=== PATIENT | female | born 1975 | race Caucasian/White ===

== ENCOUNTER 2016-12-26 09:09 | Day surgery (SDC) | payer OTHER ==
--- NOTE | 2016-12-23 10:57 | HP ---
PATIENT: SELAM CARBAJAL MEDICAL RECORD: [id number] ACCOUNT: [id number] LOCATION:[facility] : 75 ADMISSION DATE: 12/26/16 HISTORY AND PHYSICAL EXAMINATION Preoperative History and Physical HISTORY OF PRESENT ILLNESS: Selam is 41 years old. She has a thyroid nodule. She is very concerned about cancer. She has a solitary 2.6 cm nodule on the right side. Needle biopsy result was a fairly benign in appearance; however, carcinoma can be ruled out. She wants to proceed with thyroidectomy. PAST MEDICAL HISTORY: Otherwise negative. PAST SURGICAL HISTORY: times 2, cholecystectomy, stent of her liver in 2000. CURRENT MEDICATIONS: None. ALLERGIES: MORPHINE, PHENERGAN AND AMOXICILLIN. PHYSICAL EXAMINATION: GENERAL: She is healthy in appearance. FACE: Normal, symmetric, no lesions. EYES: Sclerae and conjunctivae are normal. EARS: Canals and TMs are normal. NOSE: No masses, polyps, or drainage. ORAL CAVITY AND OROPHARYNX: Tongue protrudes in midline. Pharynx is normal. NECK: She has got an obvious right-sided thyroid visibly rises when she swallows. CHEST: Clear. CARDIOVASCULAR: Regular rate and rhythm. No murmur. EXTREMITIES: Normal. IMPRESSION: Solitary thyroid nodule. PLAN: Right thyroid lobectomy with possible total thyroidectomy. TRANSINT:[id number] Voice Confirmation ID: [id number] DOCUMENT ID: [id number] MARI GALLOWAY MD at 1057 CC: [id number] DICTATION DATE: 12/22/16 1540 DEVELOPMENT EXECUTIVE: 12/22/16 2139 [address] [facility] [address] [id number]
[2016-12-26] VITALS (10 sets, daily range): BP systolic 98–112; BP diastolic 48–70; Ht 153.7 cm; Wt 99.5 kg
[~2016-12-26] VITALS: Ht 153.7 cm; Wt 99.5 kg
--- NOTE | ~2016-12-26 | OP ---
PATIENT NAME: LUISITO CARBAJAL MEDICAL RECORD: [id number] :75 LOCATION:[id number] ADMISSION DATE: SURGEON: USAMA GALLOWAY MD DATE OF OPERATION: 12/26/2016 PREOPERATIVE DIAGNOSIS: Right thyroid nodule. POSTOPERATIVE DIAGNOSIS: Right thyroid nodule. PROCEDURE: Right thyroid lobectomy. SURGEON: Usama Galloway MD ANESTHESIA: General orotracheal. BLOOD LOSS: Less than 20 cc. SPECIMENS: Right thyroid lobe. DRAINS: A 10-[place] fluted through a separate stab incision inferior to the wound. COMPLICATIONS: None. DISPOSITION: Recovery stable. 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 DESCRIPTION OF PROCEDURE: She was brought to the operating room and placed in supine position, sedated and intubated by anesthesia. She was positioned, prepped and draped in usual sterile fashion for thyroid surgery. A skin crease in the lower neck was injected with a total of 1 cc of 1% lidocaine with 1:100,000 epinephrine. A horizontal incision was made with a 15 blade. This was taken down to the fascia with a spatula tip cautery on a setting of 14. Flaps were developed superiorly and inferiorly, 4 separate 2-0 silk retraction sutures were placed. The fascia was divided in the midline. Strap muscles were identified, divided in the midline. This was taken down superiorly and inferiorly exposing the thyroid. The strap muscles were dissected bluntly off of the thyroid on the right side. [place] was inserted and the nodule was very obvious, dissected inferiorly to identify the recurrent laryngeal nerve and then superiorly to take down the pedicle and vasculature of the superior thyroid lobe with a combination of bipolar cautery and 2-0 silk ties. The gland was then rotated medially and dissected along the capsule of the gland, preserving the parathyroid glands visualizing the recurrent laryngeal nerve as this was medialized, taken down small segments of fascia with tonsil clamp, bipolar cautery and scissors until Calderón's ligament was divided. The thyroid gland was divided with cautery right over the midline of the trachea and this was sent for specimen. 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 The wound was irrigated and was carefully inspected. There was really no significant bleeding at all. Drain was placed through the separate stab incision inferior to the wound. The strap muscles were approximated loosely with interrupted 4-0 chromic. The wound was closed in platysmal layer with interrupted 3-0 Vicryl and the skin was closed with subcuticular 6-0 Prolene. A 2-0 silk drain stitch was placed. She was awakened, extubated, and transported to recovery in good condition. No complications. OPERATIVE REPORT [id number] LUISITO CARBAJAL TRANSINT:[id number] Voice Confirmation ID: [id number] DOCUMENT ID: [id number] USAMA GALLOWAY MD CC: [id number] DICTATION DATE: 12/26/161526 RIM TURNING FINISHER: 12/26/16 2307 [address] [facility] [address] [id number]
[~2016-12-26 09:09] MED LIST: LEVOTHYROXINE75 MCG PO
[2016-12-26 10:30] LABS: HEMATOCRIT 40.7 % (36.0-48.0); HEMOGLOBIN 12.7 g/dL (12-16); MCH 24.5 pg (26.0-34.0); MCHC 31.2 g/dL (31.0-37.0); MCV 78.4 fL (80.0-100.0); MEAN PLATELET VOLUME 10.1 fL (7.4-10.4); RBC 5.19 10x6/uL (4.00-5.40); RDW 16.5 % (11.5-14.5); WBC 8.1 10x3/uL (4.8-10.8)
--- NOTE | 2016-12-26 16:45 | NUR ---
RECIEVED PT VIA BED AT THIS TIME FROM RECOVERY. REPORT GIVEN BY SIDNEY GUTIÉRREZ. ASSESSMENT DONE PER FLOWSHEET. POST-OP VITALS INITIATED AT THIS TIME. BED IN LOW POSITION AND CALL LIGHT WITHIN REACH. WILL CONTINUE TO MONITOR.
--- NOTE | 2016-12-26 18:05 | NUR ---
PT PULSE RATE RUNNING LOW, CALL PLACED TO DR. LAVERNE VELA AND ANESTHESIA CAME TO SEE THE PT, HEART RATE CAME UP TO 74-76 RANGE FROM 37-45 RANGE. WILL CONTINUE TO MONITOR.
[2016-12-27] VITALS: BP 108/73
--- NOTE | 2016-12-27 02:16 | NUR ---
RESTING WITH EYES CLOSED, NO DISTRESS NOTED, FALL PRECAUTIONS IN PLACE, CL IN REACH
--- NOTE | 2016-12-27 02:30 | NUR ---
REC'D PATIENT SITTING UP IN BED. ALERT AND ORIENTED X4. REPORTED PAIN 6/10. NO DISTRESS NOTED. INSTRUCTED TO CALL IF NEEDED ANYTHING, VERBALIZED UNDERSTANDING. IS AT BEDSIDE. BED LOW, LOCKED, CALL LIGHT IN REACH.
[2016-12-27 04:00] VITALS: BP 128/66
--- NOTE | 2016-12-27 07:30 | NUR ---
RECIEVED PT DURING WALKING ROUNDS. PT SITTING UP IN BED WITH NO COMPLAINTS OF PAIN OR DISCOMFORT AT THIS TIME. ASSESSMENT DONE PER FLOWSHEET. BED IN LOW POSITION AND CALL LIGHT WITHIN REACH. WILL CONTINUE TO [facility].
[2016-12-27 08:12] VITALS: BP 114/74
[2016-12-27] MEDS ORDERED: HYDROCODON-ACE1 EAC7 PO (08:59)
--- NOTE | 2016-12-27 10:00 | NUR ---
IV REMOVED, DISCHARGE INSTRUCTIONS GIVEN. PT DISCHARGED VIA WHEELCHAIR TO [facility] WITH A FAMILY MEMBER.
== END 2016-12-27 10:26 | disposition home or self-care (01) ==
LOC: D.OPS 09:09 → D.PAN 11:15 → D.OPS 11:15 → D.MS 16:11 → D.OPS 12-27 10:26
PROVIDERS: Anesthesiology
DX: D34 Benign neoplasm of thyroid gland (principal); E06.3 Autoimmune thyroiditis; Z88.0 Allergy status to penicillin; Z88.5 Allergy status to narcotic agent; Z01.812 Encounter for preprocedural laboratory examination